=== PATIENT | female | born 1955 | race Caucasian/White ===

== ENCOUNTER → 2016-06-21 | Outpatient (REF) | payer BC, OTHER | END | disposition home or self-care (01) | LOC: M LAB REF 16:42 | PROVIDERS: ATTEND Family Medicine | DX: Z12.4 Encounter for screening for malignant neoplasm of cervix (principal) ==

== ENCOUNTER → 2016-07-09 | Outpatient (CLI) | payer BC, OTHER ==
--- NOTE | 2016-07-09 08:47 | REPMRS ---
Patient History The patient states she had a clinical breast exam in 06/2016. Patient is postmenopausal. No known family history of cancer. Took hormonal contraceptives for 9 years. Digital Woman Screen Mammo: July 09, 2016 - Exam #: [id number] Bilateral CC and MLO view(s) were taken. Technologist: Aida Lopez Technologist Prior study comparison: March 24, 2013, bilateral bilat screen digital mammo, performed at [facility] May 29, 2011, bilateral bilat screen digital mammo, performed at [facility] ([facility]). FINDINGS: The breast tissue is heterogeneously dense. This may lower the sensitivity of mammography. There has been no change in the appearance of the mammogram from the prior studies. There is a moderate amount of residual fibroglandular tissue which is fairly symmetric. There is no interval development of dominant mass, architectural distortion, or clustered microcalcification typical of malignancy. Scattered lymph nodes are seen in the right axilla and unchanged. No significant changes when compared with prior studies. ASSESSMENT: BI-RADS/ACR category 2 mammogram. Benign finding(s). Recommendation Routine screening mammogram in 1 year (for women over age 40). This mammogram was interpreted with the aid of an FDA-approved computer-aided dectection system. A. Negative x-ray reports should not delay biopsy if a dominant or clinically suspicious mass is present. B. Four to eight percent of cancers are not identified by mammography. C. Adenosis and dense breast may obscure an underlying neoplasm. Electronically Signed By: Walter Xie MD 07/09/16 [id number]
== END ==
LOC: M WHC 07:50
PROVIDERS: ATTEND Family Medicine
DX: Z00.00 Encounter for general adult medical examination without abnormal findings (principal); Z12.31 Encounter for screening mammogram for malignant neoplasm of breast; Z79.3 Long term (current) use of hormonal contraceptives

== ENCOUNTER → 2017-09-10 | Outpatient (CLI) | payer BC | LOC: M WHC 14:31 | DX: Z12.31 Encounter for screening mammogram for malignant neoplasm of breast (principal) | CPT/HCPCS: 77067 ==

== ENCOUNTER → 2018-10-22 | Outpatient (CLI) | payer BC ==
--- NOTE | 2018-10-22 14:44 | REPMRS ---
Patient History The patient states she had a clinical breast exam in . Family history of colorectal cancer at age 62 in brother. Took hormonal contraceptives for 9 years. 3D TOMOSYNTHESIS WAS PERFORMED. Digital Woman Screen Mammo: October 22, 2018 - Exam #: [id number] Bilateral CC and MLO view(s) were taken. Technologist: Beronica Yun, Technologist Prior study comparison: September 10, 2017, digital woman screen mammo performed at [facility]. July 09, 2016, digital woman screen mammo performed at [facility]. FINDINGS: The breast tissue is heterogeneously dense. This may lower the sensitivity of mammography. There has been no change in the appearance of the mammogram from the prior studies. There is a moderate amount of residual fibroglandular tissue which is fairly symmetric. There is no interval development of dominant mass, areas of architectural distortion, or clustered microcalcification typical of malignancy. Assessment: BI-RADS/ACR category 1 mammogram. Negative Mammogram. Recommendation Routine screening mammogram in 1 year (for women over age 40). This mammogram was interpreted with the aid of an FDA-approved computer-aided dectection system. Electronically Signed By: Flaco Nascimento MD 10/22/18 [id number]
== END ==
LOC: M WHC 12:32
PROVIDERS: ATTEND Family Medicine
DX: Z12.31 Encounter for screening mammogram for malignant neoplasm of breast (principal); Z80.49 Family history of malignant neoplasm of other genital organs

== ENCOUNTER 2019-02-01 06:37 | Day surgery (SDC) | payer BC, OTHER ==
[~2019-02-01] VITALS: Ht 167.6 cm; Wt 64.0 kg
[~2019-02-01 06:37] MED LIST: NS 1,000 ML IV ONE
[2019-02-01] MEDS ORDERED: LIDOCAINE 2% INJ 100 MG/5 ML SDV (FOR ANES.) As Ordered ONE (07:01)
[2019-02-01] MEDS ORDERED: fentaNYL 100 MCG/2 ML INJECTION (J3010) As Ordered ONE (07:01)
[2019-02-01] MEDS ORDERED: PROPOFOL 500 MG/50 ML VIAL As Ordered ONE (07:02)
--- NOTE | 2019-02-01 07:46 | ROOR ---
Patient Name: Orquidea Hernandes Procedure Date: 02/01/2019 7:31 AM Date of : 1955 Age: 63 Room: [facility] Gender: Female Note Status: Finalized Procedure: Upper Endoscopy + Biopsies Indications: Heartburn, Exclusion of Herrera's esophagus Providers: Ketan Quintana MD Referring MD: Ching Sheppard DO Requesting Provider: Medicines: Monitored Anesthesia Care Complications: No immediate complications. Procedure: Pre-Anesthesia Assessment: - The heart rate, respiratory rate, oxygen saturations, blood pressure, adequacy of pulmonary ventilation, and response to care were monitored throughout the procedure. The Endoscope was introduced through the mouth, and advanced to the second part of duodenum. The upper GI endoscopy was accomplished without difficulty. The patient tolerated the procedure well. Findings: The Z-line was variable and was found 35 cm from the incisors. Multiple biopsies were obtained with cold forceps for evaluation to rule out Herrera's Esophagus randomly at the gastroesophageal junction. A small hiatal hernia was present. No other significant abnormalities were identified in a careful examination of the stomach. The exam of the duodenum was otherwise normal. Impression: - Z-line variable, 35 cm from the incisors. - Small hiatal hernia. - Multiple biopsies were obtained at the gastroesophageal junction. - The examination was otherwise normal. Recommendation: - Patient has a contact number available for emergencies. The signs and symptoms of potential delayed complications were discussed with the patient. Return to normal activities tomorrow. Written discharge instructions were provided to the patient. - High fiber diet. - Discharge patient to home. - Follow an antireflux regimen. - Continue present medications. - Await pathology results. - Telephone GI clinic for pathology results in 1 week. - Return to referring physician. - The findings and recommendations were discussed with the patient's family. Ketan Quintana MD Ketan Quintana MD 02/01/2019 7:46:25 AM Electronically signed by Ketan Quintana MD Number of Addenda: 0 Note Initiated On: 02/01/2019 7:31 AM Estimated Blood Loss: Estimated blood loss: none.
--- NOTE | 2019-02-01 08:10 | ROOR ---
Patient Name: Orquidea Hernandes Procedure Date: 02/01/2019 7:32 AM Date of : 1955 Age: 63 Room: [facility] Gender: Female Note Status: Finalized Procedure: Total Colonoscopy + Hot Snare Polypectomy + Bx. + Hemoclips Indications: High risk colon cancer surveillance: Personal history of colonic polyps, Last colonoscopy: 2013 Providers: Ketan Quintana MD Referring MD: Ching Sheppard DO Requesting Provider: Medicines: Monitored Anesthesia Care Complications: No immediate complications. Procedure: Pre-Anesthesia Assessment: - The heart rate, respiratory rate, oxygen saturations, blood pressure, adequacy of pulmonary ventilation, and response to care were monitored throughout the procedure. The Colonoscope was introduced through the anus and advanced to the cecum, identified by appendiceal orifice and ileocecal valve. The colonoscopy was performed without difficulty. The patient tolerated the procedure well. The quality of the bowel preparation was excellent. Findings: The perianal and digital rectal examinations were normal. Non-bleeding internal hemorrhoids were found during retroflexion. The hemorrhoids were small and Grade I (internal hemorrhoids that do not prolapse). A large polyp was found at 60 cm proximal to the anus. The polyp was semi-pedunculated. The polyp was removed with a hot snare. Resection and retrieval were complete. To prevent bleeding after the polypectomy, two hemostatic clips were successfully placed (MR conditional). There was no bleeding at the end of the procedure. A small polyp was found in the hepatic flexure. The polyp was sessile. The polyp was removed with a jumbo cold forceps. Resection and retrieval were complete. The exam was otherwise without abnormality on direct and retroflexion views. Impression: - Non-bleeding internal hemorrhoids. - One large polyp at 60 cm proximal to the anus, removed with a hot snare. Resected and retrieved. Clips (MR conditional) were placed. - One small polyp at the hepatic flexure, removed with a jumbo cold forceps. Resected and retrieved. - The examination was otherwise normal on direct and retroflexion views. - The exam was otherwise normal to the cecum. Recommendation: - Patient has a contact number available for emergencies. The signs and symptoms of potential delayed complications were discussed with the patient. Return to normal activities tomorrow. Written discharge instructions were provided to the patient. - High fiber diet. - Discharge patient to home. - Continue present medications. - Await pathology results. - Telephone GI clinic for pathology results in 1 week. - Check Portal Online for Path Results.([email or web address]) - Repeat colonoscopy for surveillance based on pathology results. - Return to referring physician. - The findings and recommendations were discussed with the patient's family. Ketan Quintana MD Ketan Quintana MD 02/01/2019 8:09:54 AM Electronically signed by Ketan Quintana MD Number of Addenda: 0 Note Initiated On: 02/01/2019 7:32 AM Estimated Blood Loss: Estimated blood loss: none.
[2019-02-01 08:30] VITALS: BP 138/75
== END 2019-02-01 08:44 | disposition home or self-care (01) ==
LOC: M OPP 06:37
PROVIDERS: ATTEND Internal Medicine Gastroenterology
DX: Z12.11 Encounter for screening for malignant neoplasm of colon (principal); Z86.010 Personal history of colon polyps; K64.0 First degree hemorrhoids; D12.6 Benign neoplasm of colon, unspecified; D12.3 Benign neoplasm of transverse colon
CPT/HCPCS: 43239; 45380; 45385; 88305; J3010

== ENCOUNTER → 2020-02-02 | Outpatient (CLI) | payer BC ==
--- NOTE | 2020-02-02 18:09 | REPMRS ---
Patient History The patient states she had a clinical breast exam in 10/2019. Patient is postmenopausal. Family history of colorectal cancer at age 62 in brother, colorectal cancer at age 47 in niece. Took hormonal contraceptives for 9 years. Digital Woman Screen Mammo: February 02, 2020 - Exam #: [id number] Bilateral CC and MLO view(s) were taken. Technologist: Leatha Calvo, Technologist Prior study comparison: October 22, 2018, bilateral digital woman screen mammo performed at [facility]. September 10, 2017, digital woman screen mammo performed at [facility]. July 09, 2016, digital woman screen mammo performed at [facility]. FINDINGS: There are scattered fibroglandular densities. The Volpara volumetric breast density category is:B. There has been no change in the appearance of the mammogram from the prior studies. There is a mild amount of scattered fibroglandular density which is fairly symmetric. There is no interval development of dominant mass, architectural distortion, or grouped microcalcification suggestive of malignancy. 3-D tomosynthesis shows no additional findings. Assessment: BI-RADS/ACR category 1 mammogram. Negative Mammogram. Recommendation Routine screening mammogram of both breasts in 1 year (for women over age 40). This patient's Lifetime Breast Cancer Risk is estimated at 8.2 %. This mammogram was interpreted with the aid of an FDA-approved computer-aided dectection system. Electronically Signed By: Terry Vitale MD 02/02/20 3600
== END ==
LOC: M WHC 13:45
PROVIDERS: ATTEND Family Medicine
DX: Z12.31 Encounter for screening mammogram for malignant neoplasm of breast (principal); Z80.0 Family history of malignant neoplasm of digestive organs

== ENCOUNTER → 2021-06-29 | Outpatient (CLI) | payer BC | LOC: M WHC 09:30 | PROVIDERS: ATTEND Family Medicine | DX: Z12.31 Encounter for screening mammogram for malignant neoplasm of breast (principal) ==

== ENCOUNTER → 2022-07-05 | Outpatient (CLI) | payer MEDICARE, BC, OTHER | LOC: M WHC 10:08 | PROVIDERS: ATTEND Family Medicine | DX: Z12.31 Encounter for screening mammogram for malignant neoplasm of breast (principal) ==

== ENCOUNTER → 2023-09-11 | Outpatient (CLI) | payer MEDICARE, BC | LOC: M WHC 08:10 | PROVIDERS: ATTEND Family Medicine | DX: Z12.31 Encounter for screening mammogram for malignant neoplasm of breast (principal); R92.333 Mammographic heterogeneous density, bilateral breasts ==

== ENCOUNTER 2024-02-02 07:01 | Day surgery (SDC) | payer MEDICARE, BC ==
[~2024-02-02] VITALS: Ht 167.6 cm; Wt 65.1 kg
[~2024-02-02 07:01] MED LIST changes: -NS 1,000 ML IV ONE; +TIMO0.5S20
[2024-02-02] MEDS: NS 1,000 ML IV ONE (07:17)
[2024-02-02] MEDS ORDERED: propofoL 200 MG/20 ML VIAL As Ordered ONE (08:45)
[2024-02-02 08:50] VITALS: TEMP 96.8
[2024-02-02 09:05] VITALS: BP 139/64; O2SAT 98
== END 2024-02-02 09:15 | disposition home or self-care (01) ==
LOC: M OPP 07:01
PROVIDERS: ATTEND Internal Medicine Gastroenterology
DX: Z86.010 Personal history of colon polyps (principal); D12.3 Benign neoplasm of transverse colon; K64.0 First degree hemorrhoids; Z79.899 Other long term (current) drug therapy